=== PATIENT | female | born 1980 | race Caucasian/White ===

== ENCOUNTER 2018-01-23 12:07 | Inpatient (IN) ==
[2018-01-23 12:15] VITALS: BMI 30.8
[2018-01-23] MEDS ORDERED: D5 1/2 NS 1L W PITOCIN 20 UNITS/L 20 UNITS/1,000 ML BAG IV ONE (12:30)
[2018-01-23] MEDS ORDERED: D5 1/2 NS 1000 ML 1,000 ML IV ONE (12:31)
[2018-01-23] MEDS ORDERED: D5LR 1L W PITOCIN 10 UNITS/L 10 UNITS/1,000 ML BAG IV ONE (12:31)
[2018-01-23] MEDS ORDERED: NUBAIN INJ 200 MG VIAL MULTIDOSE IVP PRN (12:39)
[2018-01-23] MEDS ORDERED: D5LR 1L W PITOCIN 10 UNITS/L 10 UNITS/1,000 ML BAG IV PRN (12:39)
[2018-01-23] MEDS ORDERED: PITOCIN IVP ONE (12:39)
[2018-01-23] MEDS ORDERED: PHENERGAN INJ 25 MG IVP PRN (12:39)
[2018-01-23] MEDS ORDERED: AMPICILLIN VIAL 2 GRAM 2 G in NS 100 ML IV + SPIKE MINIBAG* 100 ML IV SCH (12:43)
[2018-01-23] MEDS ORDERED: D5 1/2 NS 1000 ML 1,000 ML IV SCH (13:00)
[2018-01-23 13:15] LABS: BILIRUBIN,URINE NEGATIVE (NEGATIVE); BLOOD/HEMOGLOBIN,URINE 2+ (NEGATIVE); GLUCOSE, URINE NEGATIVE (NEGATIVE); KETONES,URINE NEGATIVE (NEGATIVE); LEUKOCYTE ESTERASE ,URINE 3+ (NEGATIVE); NITRITES,URINE NEGATIVE (NEGATIVE); PH,URINE 6.5 (5.0 - 8.0); PROTEIN,URINE 2+ (NEGATIVE); UROBILINOGEN,URINE NORMAL (NORMAL)
[2018-01-23 13:17] LABS: BASOPHILS # (AUTO) 0.1 X10^3/uL (0.0-0.1); BASOPHILS % (AUTO) 0.8 % (0.2-1.0); EOSINOPHILS # (AUTO) 0.1 x10^3/uL (0.0-0.2); EOSINOPHILS % (AUTO) 0.9 % (0.9-2.9); HEMATOCRIT 32.1 % (36.0-47.0); HEMOGLOBIN 11.4 g/dL (12.0-16.0); LYMPHOCYTES # (AUTO) 1.9 X10^3/uL (1.3-2.9); LYMPHOCYTES % (AUTO) 17.1 % (21.0-51.0); MEAN CORPUSCULAR HEMOGLOBIN 31.9 pg (27.0-34.0); MEAN CORPUSCULAR HGB CONC 35.4 g/dL (33.0-35.0); MEAN CORPUSCULAR VOLUME 90.1 fL (80.0-100.0); MEAN PLATELET VOLUME 8.8 fL (7.4-11.0); MONOCYTES # (AUTO) 0.5 x10^3/uL (0.3-0.8); MONOCYTES % (AUTO) 4.5 % (0.0-13.0); NEUTROPHILS # (AUTO) 8.6 x10^3/uL (2.2-4.8); NEUTROPHILS % (AUTO) 76.7 % (42.0-75.0); PLATELET COUNT 307 X10^3/uL (150.0-450.0); RED BLOOD COUNT 3.57 X10^6/uL (3.5-5.4); RED CELL DISTRIBUTION WIDTH 14.2 % (11.6-16.5); WHITE BLOOD COUNT 11.2 X10^3/uL (3.6-10.0)
[2018-01-23] MEDS ORDERED: AMPICILLIN VIAL 2 GRAM ONE (13:17)
[2018-01-23] MEDS ORDERED: NS 100 ML IV 100 ML IV ONE (13:17)
[2018-01-23] MEDS ORDERED: PITOCIN ONE (13:18)
[2018-01-23 13:22] LABS: BLOOD UREA NITROGEN 4 mg/dL (7-18); CALCIUM 8.3 mg/dL (8.5-10.1); CARBON DIOXIDE 25.1 mmol/L (21-32); CHLORIDE 103 mmol/L (98-107); CREATININE 0.53 mg/dL (0.55-1.02); SODIUM 136 mmol/L (136-145); eGFR NON BLACK RACES > 60 (>60)
[2018-01-23 13:34] LABS: APPEARANCE,URINE SLIGHTLY HAZY (CLEAR); BACTERIA,URINE TRACE /HPF (NEGATIVE); COLOR,URINE YELLOW (YELLOW); MUCUS,URINE RARE /HPF (NEGATIVE); RBC,URINE 0-2 /HPF (NONE SEEN); SQUAMOUS EPITHELIAL CELL,UR RARE /HPF (NEGATIVE); TRICHOMONAS,URINE FEW /HPF (NEGATIVE); YEAST,URINE RARE /HPF (NEGATIVE)
[2018-01-23] MEDS ORDERED: PHENERGAN INJ 25 MG IV PRN (15:11)
[2018-01-23] MEDS: D5 1/2 NS 1000 ML 1,000 ML with PITOCIN 20 UNITS IV SCH ×2 (15:42)
[2018-01-23] MEDS ORDERED: AMBIEN PO PRN (15:44)
[2018-01-23] MEDS ORDERED: MILK OF MAGNESIA PO PRN (15:44)
[2018-01-23] MEDS ORDERED: DERMOPLAST SPRAY TOP PRN (15:44)
[2018-01-23] MEDS ORDERED: ADACEL or BOOSTRIX TDaP VACCINE IM ONE (15:44)
[2018-01-23] MEDS: NICOTINE PATCH TD SCH (16:35)
[2018-01-23] MEDS ORDERED: AMPICILLIN VIAL 1 GRAM 1 G in NS 50 ML IV + SPIKE MINIBAG* 50 ML IV SCH (16:43)
[2018-01-23] MEDS: MOTRIN TAB 800 MG PO PRN (17:32)
--- NOTE | 2018-01-23 17:32 | DR.OB ---
OB Quick Note - Assessment/Plan Assessment/Plan: Delivery Note J[employer] 01/23/18 at 2:57pm Patient complete and pushing. Head delivered over intact perineum. No nuchal cord. Nose and mouth bulb suctioned. Cord clamped x 2 and cut. Infant handed to attendant. Cord sent for gases. Placenta delivered spontaneously / intact / 3 vessel cord. No CVX / vaginal / perineal tears. Viable female infant, VTX/ OA, wt=7'3" and 9/9, stable to NBN. Mother stable to RR. OWF=[id number].
[2018-01-23] MEDS: ZANTAC PO SCH (21:53)
[2018-01-23] MEDS: FLAGYL TAB 500 MG PO SCH (21:53)
[2018-01-24 05:18] LABS: HEMATOCRIT 31.2 % (36.0-47.0); HEMOGLOBIN 11.1 g/dL (12.0-16.0)
[2018-01-24] MEDS: D5 1/2 NS 1000 ML 1,000 ML with PITOCIN 20 UNITS IV SCH ×4 (06:03→08:38)
[2018-01-24] MEDS: MOTRIN TAB 800 MG PO PRN (07:26)
[2018-01-24] MEDS ORDERED: DEPO-PROVERA CONTRACEPTIVE INJ IM ONE (07:30)
[2018-01-24] MEDS: FLAGYL TAB 500 MG PO SCH (08:41)
[2018-01-24] MEDS: ZANTAC PO SCH (08:42)
[2018-01-24] MEDS: NICOTINE PATCH TD SCH (08:42)
[2018-01-24] MEDS ORDERED: PRENATAL PLUS PO SCH (09:00)
[2018-01-24 16:33] VITALS: BP 116/74
== END 2018-01-24 17:20 | disposition home or self-care (01) | DRG 775 ==
LOC: ER 12:10 → LD 12:24
PROVIDERS: ADMIT Specialist; ATTEND Specialist
DX: Z37.0 Single live birth; Z3A.40 40 weeks gestation of pregnancy; O80 Encounter for full-term uncomplicated delivery; Z23 Encounter for immunization
CPT/HCPCS: 36415; 59409; 80048; 80307; 81001; 85014; 85018; 85025; 86592; 86701; 86703; 86850; 86870; 86880; 86900; 86901; 87086; 87186; 87389; 90715; A4216; A4222; S0197; G0434; J0290; J1050; J2590; J7050; S5010